=== PATIENT | female | born 1975 | race Caucasian/White ===

== ENCOUNTER 2016-05-26 12:14 | Emergency (ER) | payer OTHER ==
[~2016-05-26] VITALS: Ht 172.7 cm; Wt 104.5 kg
[2016-05-26 12:19] VITALS: TEMP 97.8
[2016-05-26 13:00] LABS: PH 5 (5-8); URINE APPEARANCE Hazy; URINE BACTERIA Rare /hpf; URINE BILIRUBIN Negative (NEGATIVE); URINE BLOOD Negative (NEGATIVE); URINE COLOR Yellow; URINE GLUCOSE Negative (NEGATIVE); URINE KETONE Negative (NEGATIVE); URINE RBC 0-2 /hpf; URINE UROBILINOGEN Negative (NEGATIVE)
[2016-05-26] MEDS ORDERED: MACROBID 1100 MG/CAP PO (13:10)
[2016-05-26] MEDS ORDERED: PYRIDIUM200 M1 PO (13:10)
[2016-05-26 13:20] VITALS: BP 140/97; PULSE 86
== END 2016-05-26 13:35 | disposition home or self-care (01) ==
LOC: COL.ER 12:14
PROVIDERS: Physician Assistant Medical
DX: N39.0 Urinary tract infection, site not specified (principal)

== ENCOUNTER 2018-03-12 13:17 | Emergency (ER) | payer OTHER ==
[~2018-03-12] VITALS: Ht 172.7 cm; Wt 110.9 kg
[~2018-03-12 13:17] MED LIST: MACROBID 1100 MG/CAP PO; PYRIDIUM200 M1 PO
[2018-03-12 13:24] VITALS: TEMP 97.5
[2018-03-12] MEDS ORDERED: ZYRTEC 10MG10 MG PO (13:39)
[2018-03-12] MEDS ORDERED: PRINIVIL10 MG PO (13:39)
[2018-03-12] MEDS ORDERED: HCTZ12.5TAB PO (13:39)
[2018-03-12] MEDS ORDERED: RT ADVAIR 228 DISKUS IH (13:40)
[2018-03-12] MEDS ORDERED: LEXAPRO 10MG10 MG PO (13:40)
[2018-03-12 13:59] LABS: BASO % 0.4 % (0.0-2.0); EOS # 0.1 (0.0-0.7); EOS % 1.9 % (0-4.0); GRAN # 4.4 (1.4-6.5); HEMATOCRIT 41.3 % (37.0-47.0); HEMOGLOBIN 14.3 g/dl (12.5-16.0); LYMPH # 2.4 (1.2-3.4); LYMPH % 32.2 % (20.0-51.0); MEAN CELL VOLUME 85 fl (80.0-100.0); MEAN CORPUSCULAR HEMOGLOBIN 29 pg (27.0-31.0); MEAN CORPUSCULAR HGB CONC 35 g/dl (33.0-37.0); MEAN PLATELET VOLUME 8.5 fl (7.4-10.4); MONO # 0.4 (0.1-0.6); MONO % 5.1 % (1.7-9.3); PLATELET COUNT 316 K/mm3 (130-400); RED BLOOD COUNT 4.88 M/mm3 (4.10-5.30); REDCELL DISTRIBUTION WIDTH-CV 12.9 % (11.5-14.5)
[2018-03-12 14:11] LABS: ALANINE AMINOTRANSFERASE 51 U/L (9-52); ALBUMIN 4.5 gm/dL (3.5-5.0); ALKALINE PHOSPHATASE 87 U/L (50-136); ANION GAP 10 mmol/L (7-16); AST,SGOT 29 U/L (15-37); BLOOD UREA NITROGEN 10 mg/dL (7-17); CALCIUM 9.4 mg/dL (8.4-10.2); CARBON DIOXIDE 28 mmol/L (22-30); CHLORIDE 103 mmol/L (98-107); CREATININE, serum 0.76 mg/dL (0.52-1.25); GLUCOSE 141 mg/dL (74-106); POTASSIUM 3.3 mmol/L (3.4-5.0); SODIUM 141 mmol/L (137-145); TOTAL PROTEIN 7.6 gm/dL (6.4-8.2)
[2018-03-12 14:14] LABS: COLLECTION METHOD CLEAN CATCH
[2018-03-12 14:19] LABS: MUCOUS Present /lpf; PH 5 (5-8); SQUAMOUS EPITHELIAL 0-2 /hpf; URINE APPEARANCE Clear; URINE BACTERIA None Seen /hpf; URINE BILIRUBIN Negative (NEGATIVE); URINE BLOOD Negative (NEGATIVE); URINE COLOR Yellow; URINE GLUCOSE Negative (NEGATIVE); URINE KETONE Negative (NEGATIVE); URINE LEUKOCYTE ESTERASE Negative (NEGATIVE); URINE NITRATE Negative (NEGATIVE); URINE PROTEIN(semi-quant) Negative (NEGATIVE); URINE RBC 0-2 /hpf
[2018-03-12 14:30] LABS: TROPONIN-I < 0.012 ng/mL (0.000-0.034)
[2018-03-12 15:17] VITALS: BP 156/90; PULSE 80
== END 2018-03-12 15:17 | disposition home or self-care (01) ==
LOC: COL.ER 13:17
PROVIDERS: Physician Assistant
DX: I10 Essential (primary) hypertension (principal); Z98.890 Other specified postprocedural states

== ENCOUNTER → 2021-07-19 | Outpatient (CLI) | payer OTHER ==
[~2021-07-19] MED LIST changes: +HCTZ12.5TAB PO; +LEXAPRO 10MG10 MG PO; +PRINIVIL10 MG PO; +RT ADVAIR 228 DISKUS IH; +ZYRTEC 10MG10 MG PO
== END ==
LOC: MC.RAD 10:54
DX: N60.02 Solitary cyst of left breast (principal); N60.12 Diffuse cystic mastopathy of left breast